=== PATIENT | male | born 1965 | race Caucasian/White ===

== ENCOUNTER → 2018-02-20 | Outpatient (REF) | payer OTHER ==
[2018-02-20 13:35] LABS: BASO % 0.8 % (0.0-1.0); EOS # 0.1 10^3/uL (0.0-0.50); EOS % 2.3 % (0.0-3.0); HEMATOCRIT 40.5 % (42.0-52.0); HEMOGLOBIN 13.7 g/dl (13.5-17.5); IMMATURE GRANULOCYTE % 0.6 % (0-3.0); LYMPH # 1.4 10^3/uL (1.5-4.5); LYMPH % 25.9 % (24.0-44.0); MEAN CORPUSCULAR HEMOGLOBIN 28.8 pg (27.0-33.0); MEAN CORPUSCULAR HGB CONC 33.8 g/dl (32.0-36.5); MEAN CORPUSCULAR VOLUME 85.1 fl (80.0-96.0); MONO # 0.4 10^3/uL (0.0-0.8); MONO % 7.4 % (0.0-5.0); NEUTROPHILS # 3.3 10^3/uL (1.8-7.7); PLATELET COUNT, AUTOMATED 253 10^3/uL (150-450); RED BLOOD COUNT 4.76 10^6/uL (4.30-6.10); RED CELL DISTRIBUTION WIDTH 12.2 % (11.5-14.5); WHITE BLOOD COUNT 5.3 10^3/uL (4.0-10.0)
[2018-02-20 13:38] LABS: ALBUMIN 4.3 GM/DL (3.2-5.2); ALBUMIN/GLOBULIN RATIO 1.72 (1.00-1.93); ALKALINE PHOSPHATASE 88 U/L (45-117); ALT/SGPT 44 U/L (12-78); ANION GAP 7 MEQ/L (8-16); AST/SGOT 24 U/L (7-37); BILIRUBIN,TOTAL 0.3 MG/DL (0.2-1.0); BLOOD UREA NITROGEN 14 MG/DL (7-18); CARBON DIOXIDE LEVEL 28 MEQ/L (21-32); CHLORIDE LEVEL 104 MEQ/L (98-107); CHOLESTEROL LEVEL 212 MG/DL (<200); GLOMERULAR FILTRATION RATE > 60.0 (>56); GLUCOSE, FASTING 111 MG/DL (70-100); HDL CHOLESTEROL 43 MG/DL (>40); LDL CHOLESTEROL 145 MG/DL (<100); NON-HDL-C 169 MG/DL; POTASSIUM SERUM 4.5 MEQ/L (3.5-5.1); SODIUM LEVEL 139 MEQ/L (136-145); TOTAL PROTEIN 6.8 GM/DL (6.4-8.2); TRIGLYCERIDES LEVEL 122 MG/DL (<150)
[2018-02-21 14:14] LABS: PSA TOTAL 0.7 ng/mL (0.0-4.0)
== END ==
LOC: M LABDRWAD 12:22
DX: Z00.00 Encounter for general adult medical examination without abnormal findings (principal); Z12.5 Encounter for screening for malignant neoplasm of prostate; E78.49 Other hyperlipidemia
CPT/HCPCS: 80053

== ENCOUNTER 2018-08-05 01:09 | Emergency (ER) | payer BC, OTHER ==
[~2018-08-05] VITALS: Ht 180.3 cm; Wt 95.1 kg
[~2018-08-05 01:09] MED LIST: ASPI81TA26 PO; MULTCAP PO
[2018-08-05] MEDS ORDERED: [UNRECOGNIZED DRUG - CODE] PO (01:13)
[2018-08-05] MEDS ORDERED: LIPI10TA PO (01:13)
[2018-08-05 01:53] LABS: BASO % 0.4 % (0.0-1.0); EOS # 0.1 10^3/uL (0.0-0.50); EOS % 2.8 % (0.0-3.0); HEMATOCRIT 39.5 % (42.0-52.0); HEMOGLOBIN 13.4 g/dl (13.5-17.5); LYMPH # 1.2 10^3/uL (1.5-4.5); LYMPH % 25.7 % (24.0-44.0); MEAN CORPUSCULAR HEMOGLOBIN 29.1 pg (27.0-33.0); MEAN CORPUSCULAR HGB CONC 33.9 g/dl (32.0-36.5); MEAN CORPUSCULAR VOLUME 85.9 fl (80.0-96.0); MONO # 0.6 10^3/uL (0.0-0.8); MONO % 11.7 % (0.0-5.0); NEUTROPHILS # 2.8 10^3/uL (1.8-7.7); NEUTROPHILS % 59.2 % (36.0-66.0); PLATELET COUNT, AUTOMATED 218 10^3/uL (150-450); WHITE BLOOD COUNT 4.7 10^3/uL (4.0-10.0)
[2018-08-05 02:04] LABS: INR 0.92; PROTHROMBIN TIME 12.5 SECONDS (12.1-14.4)
[2018-08-05 02:26] LABS: ALBUMIN 3.7 GM/DL (3.2-5.2); ALT/SGPT 44 U/L (12-78); BILIRUBIN,TOTAL 0.3 MG/DL (0.2-1.0); BLOOD UREA NITROGEN 13 MG/DL (7-18); CALCIUM LEVEL 7.8 MG/DL (8.5-10.1); CARBON DIOXIDE LEVEL 27 MEQ/L (21-32); CHLORIDE LEVEL 109 MEQ/L (98-107); CPK CREATINE PHOSPHOKINASE 278 U/L (39-308); CREATININE FOR GFR 0.91 MG/DL (0.70-1.30); GLOMERULAR FILTRATION RATE > 60.0 (>56); GLUCOSE, FASTING 120 MG/DL (70-100); LIPASE 87 U/L (73-393); MB/CK RELATIVE INDEX 1.01 (< OR =4); POTASSIUM SERUM 3.6 MEQ/L (3.5-5.1); SODIUM LEVEL 142 MEQ/L (136-145); TOTAL PROTEIN 6.4 GM/DL (6.4-8.2); TROPONIN I < 0.02 NG/ML (< 0.10)
[2018-08-05 04:52] LABS: MAGNESIUM LEVEL 2.3 MG/DL (1.8-2.4)
[2018-08-05] MEDS ORDERED: NS 1,000 ML IV ONE (06:00)
[2018-08-05 07:30] VITALS: BP 116/70
--- NOTE | 2018-08-05 11:38 | REP ---
CHEST, SINGLE VIEW: There is no evidence of acute infiltrate. No pleural effusion is seen. The heart is normal in size. The mediastinal silhouette is unremarkable. The visualized osseous structures are intact. IMPRESSION: No acute pulmonary disease. Electronically Signed by Juan Jose Alvraado MD 08/05/2018 12:28 P
--- NOTE | 2018-08-05 21:15 | ECGEPIP ---
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
== END 2018-08-05 08:01 | disposition home or self-care (01) ==
LOC: M ED 01:09
DX: E86.0 Dehydration (principal); R00.2 Palpitations; E78.5 Hyperlipidemia, unspecified; Z79.899 Other long term (current) drug therapy; Z79.82 Long term (current) use of aspirin

== ENCOUNTER → 2020-06-09 | Outpatient (REF) | payer OTHER ==
[~2020-06-09] MED LIST changes: +ASPI81CH2 PO; +LIPI10TA PO
[2020-06-09 13:34] LABS: MEAN CORPUSCULAR HEMOGLOBIN 27.9 pg (27.0-33.0); MEAN CORPUSCULAR HGB CONC 31.8 g/dl (32.0-36.5); MEAN CORPUSCULAR VOLUME 87.6 fl (80.0-96.0); PLATELET COUNT, AUTOMATED 240 10^3/uL (150-450); RED BLOOD COUNT 5.02 10^6/uL (4.30-6.10); WHITE BLOOD COUNT 5.1 10^3/uL (4.0-10.0)
[2020-06-09 14:20] LABS: ALBUMIN 4.1 GM/DL (3.2-5.2); ALT/SGPT 34 U/L (12-78); BILIRUBIN,TOTAL 0.3 MG/DL (0.2-1.0); BLOOD UREA NITROGEN 17 MG/DL (7-18); CARBON DIOXIDE LEVEL 30 MEQ/L (21-32); CHLORIDE LEVEL 104 MEQ/L (98-107); CHOLESTEROL LEVEL 169 MG/DL (<200); CREATININE FOR GFR 0.98 MG/DL (0.70-1.30); GLOMERULAR FILTRATION RATE > 60.0 (>56); GLUCOSE, FASTING 108 MG/DL (70-100); HDL CHOLESTEROL 43 MG/DL (>40); LDL CHOLESTEROL 104 MG/DL (<100); NON-HDL-C 126 MG/DL; POTASSIUM SERUM 4.4 MEQ/L (3.5-5.1); SODIUM LEVEL 138 MEQ/L (136-145); TOTAL PROTEIN 6.8 GM/DL (6.4-8.2); TRIGLYCERIDES LEVEL 110 MG/DL (<150)
== END ==
LOC: M SFHCADAM 07:57
PROVIDERS: ATTEND Physician Assistant Medical
DX: E78.2 Mixed hyperlipidemia (principal); Z00.00 Encounter for general adult medical examination without abnormal findings; Z13.1 Encounter for screening for diabetes mellitus; Z13.0 Encounter for screening for diseases of the blood and blood-forming organs and certain disorders involving the immune mechanism

== ENCOUNTER → 2021-11-08 | Outpatient (REF) | payer OTHER ==
[2021-11-08 13:48] LABS: BASO % 0.6 % (0.0-1.0); EOS # 0.1 10^3/uL (0.0-0.5); EOS % 2.1 % (0.0-3.0); HEMATOCRIT 42.6 % (42.0-52.0); HEMOGLOBIN 14.2 g/dl (13.5-17.5); LYMPH # 1.4 10^3/uL (1.5-5.0); LYMPH % 28.4 % (24.0-44.0); MEAN CORPUSCULAR HEMOGLOBIN 28.7 pg (27.0-33.0); MEAN CORPUSCULAR HGB CONC 33.3 g/dl (32.0-36.5); MEAN CORPUSCULAR VOLUME 86.1 fl (80.0-96.0); MONO # 0.5 10^3/uL (0.0-0.8); MONO % 9.9 % (2.0-8.0); NEUTROPHILS # 2.9 10^3/uL (1.5-8.5); NEUTROPHILS % 58.6 % (36.0-66.0); PLATELET COUNT, AUTOMATED 240 10^3/uL (150-450); RED BLOOD COUNT 4.95 10^6/uL (4.30-6.10); WHITE BLOOD COUNT 4.9 10^3/uL (4.0-10.0)
[2021-11-08 15:54] LABS: ALBUMIN 3.9 GM/DL (3.2-5.2); ALT/SGPT 36 U/L (12-78); BILIRUBIN,TOTAL 0.5 MG/DL (0.2-1.0); BLOOD UREA NITROGEN 16 MG/DL (7-18); CALCIUM LEVEL 8.9 MG/DL (8.5-10.1); CARBON DIOXIDE LEVEL 26 MEQ/L (21-32); CHLORIDE LEVEL 104 MEQ/L (98-107); CHOLESTEROL LEVEL 186 MG/DL (<200); CHOLESTEROL RISK RATIO 4.043 (<5); CREATININE FOR GFR 0.97 MG/DL (0.70-1.30); GLOMERULAR FILTRATION RATE > 60.0 (>56); GLUCOSE, FASTING 112 MG/DL (70-100); HDL CHOLESTEROL 46 MG/DL (>40); LDL CHOLESTEROL 122 MG/DL (<100); NON-HDL-C 140 MG/DL; POTASSIUM SERUM 4.4 MEQ/L (3.5-5.1); SODIUM LEVEL 137 MEQ/L (136-145); TOTAL PROTEIN 6.8 GM/DL (6.4-8.2); TRIGLYCERIDES LEVEL 90 MG/DL (<150)
[2021-11-08 16:01] LABS: MALB URINE SIEMENS 13.1 MG/L; MAU/CREAT RATIO 6.3 MCG/MG (0.0-30.0)
[2021-11-09 00:02] LABS: HEMOGLOBIN A1c 5.8 %
== END ==
LOC: M SFHCADAM 08:04
PROVIDERS: ATTEND Physician Assistant Medical
DX: Z00.00 Encounter for general adult medical examination without abnormal findings (principal); E78.2 Mixed hyperlipidemia; R73.01 Impaired fasting glucose

== ENCOUNTER → 2022-08-30 | Outpatient (REF) | payer OTHER ==
[2022-08-30 14:54] LABS: ALBUMIN 4.3 G/DL (3.2-5.2); ALKALINE PHOSPHATASE 75 U/L (46-116); ALT/SGPT 34 U/L (7.0-40); AST/SGOT 30 U/L (<34); BILIRUBIN,TOTAL 0.5 MG/DL (0.3-1.2); BLOOD UREA NITROGEN 18 MG/DL (9-23); CALCIUM LEVEL 8.6 MG/DL (8.5-10.1); CARBON DIOXIDE LEVEL 25 MMOL/L (20-31); CHLORIDE LEVEL 105 MMOL/L (98-107); CHOLESTEROL LEVEL 154 MG/DL (<200); CREATININE FOR GFR 0.86 MG/DL (0.70-1.30); GLOMERULAR FILTRATION RATE > 60.0 (>56); GLUCOSE, FASTING 102 MG/DL (60-100); HDL CHOLESTEROL 43.9 MG/DL (>40); LDL CHOLESTEROL 91.7 MG/DL (<100); NON-HDL-C 110.1 MG/DL; POTASSIUM SERUM 4.2 MMOL/L (3.5-5.1); SODIUM LEVEL 138 MMOL/L (136-145); TOTAL PROTEIN 6.5 G/DL (5.7-8.2); TRIGLYCERIDES LEVEL 92 MG/DL (<150)
[2022-08-30 14:56] LABS: HEMOGLOBIN A1c 5.6 % (4.0-6.0)
== END ==
LOC: M SFHCADAM 07:23
PROVIDERS: ATTEND Physician Assistant Medical
DX: E78.2 Mixed hyperlipidemia (principal); R73.01 Impaired fasting glucose; Z00.00 Encounter for general adult medical examination without abnormal findings

== ENCOUNTER → 2023-09-05 | Outpatient (REF) | payer BC ==
[2023-09-05 13:38] LABS: ALKALINE PHOSPHATASE 78 U/L (46-116); ALT/SGPT 32 U/L (7.0-40); AST/SGOT 18 U/L (<34); BILIRUBIN,TOTAL 0.6 MG/DL (0.3-1.2); BLOOD UREA NITROGEN 14 MG/DL (9-23); CALCIUM LEVEL 8.6 MG/DL (8.5-10.1); CARBON DIOXIDE LEVEL 28 MMOL/L (20-31); CHLORIDE LEVEL 107 MMOL/L (98-107); CHOLESTEROL LEVEL 153 MG/DL (<200); CREATININE FOR GFR 0.84 MG/DL (0.70-1.30); GLOMERULAR FILTRATION RATE > 60.0 (>56); GLUCOSE, FASTING 112 MG/DL (60-100); HDL CHOLESTEROL 40.2 MG/DL (>40); LDL CHOLESTEROL 91.2 MG/DL (<100); NON-HDL-C 112.8 MG/DL; POTASSIUM SERUM 4.4 MMOL/L (3.5-5.1); SODIUM LEVEL 141 MMOL/L (136-145); TOTAL PROTEIN 6.4 G/DL (5.7-8.2); TRIGLYCERIDES LEVEL 108 MG/DL (<150)
[2023-09-05 13:41] LABS: BASO % 0.4 % (0.0-1.0); EOS # 0.1 10^3/uL (0.0-0.5); EOS % 2.1 % (0.0-3.0); HEMATOCRIT 42.6 % (42.0-52.0); HEMOGLOBIN 14.4 g/dl (13.5-17.5); LYMPH # 1.4 10^3/uL (1.5-5.0); LYMPH % 29.2 % (24.0-44.0); MEAN CORPUSCULAR HEMOGLOBIN 29.8 pg (27.0-33.0); MEAN CORPUSCULAR HGB CONC 33.8 g/dl (32.0-36.5); MEAN CORPUSCULAR VOLUME 88.2 fl (80.0-96.0); MONO # 0.4 10^3/uL (0.0-0.8); MONO % 9.2 % (2.0-8.0); NEUTROPHILS # 2.7 10^3/uL (1.5-8.5); NEUTROPHILS % 58.9 % (36.0-66.0); PLATELET COUNT, AUTOMATED 243 10^3/uL (150-450); RED BLOOD COUNT 4.83 10^6/uL (4.30-6.10); THYROID STIMULATING HORMONE 2.077 uIU/ML (0.55-4.78); WHITE BLOOD COUNT 4.7 10^3/uL (4.0-10.0)
[2023-09-05 14:28] LABS: HEMOGLOBIN A1c 5.6 % (4.0-6.0)
== END ==
LOC: M SFHCADAM 07:24
PROVIDERS: ATTEND Physician Assistant Medical
DX: E78.2 Mixed hyperlipidemia (principal); R73.01 Impaired fasting glucose

== ENCOUNTER → 2024-10-28 | Outpatient (REF) | payer BC ==
[2024-10-28 13:31] LABS: PLATELET COUNT, AUTOMATED 245 10^3/uL (150-450)
[2024-10-28 13:44] LABS: CHOLESTEROL LEVEL 143 MG/DL (<200); CHOLESTEROL RISK RATIO 3.40 (<5); IRON (FE) 76 UG/DL (65-175); LDL CHOLESTEROL 85.2 MG/DL (<100); NON-HDL-C 101.0 MG/DL; PERCENT SATURATION 25.1 % (19.7-50.0); TRIGLYCERIDES LEVEL 79 MG/DL (<150)
[2024-10-28 13:45] LABS: VITAMIN B12 LEVEL 368 PG/ML (211-911)
== END ==
LOC: M SFHCADAM 07:32
PROVIDERS: ATTEND Physician Assistant Medical
DX: D64.9 Anemia, unspecified (principal); E78.2 Mixed hyperlipidemia